=== PATIENT | male | born 1945 | race Caucasian/White ===

== ENCOUNTER → 2017-04-28 | Outpatient (CLI) | payer MEDICARE, OTHER ==
--- NOTE | 2017-04-29 11:02 | US ---
EXAM DESCRIPTION: Carotid Duplex CLINICAL HISTORY: CAROTID BRUIT COMPARISON: None. TECHNIQUE: Transcutaneous scanning utilizing 2-dimensional and Doppler modes to evaluate the bilateral carotid systems and vertebral arteries. Percentage of diameter of stenosis or no stenosis recorded will be based upon NASCET criteria. FINDINGS: Peak systolic/end diastolic (CM-Sec) CCA Right 88/14 Left 86/17. ICA Right proximal 125/20, mid 124/11. Left proximal 117/22, mid 79/14. Vertebral Right 30/8 Left 32/6. ECA (PS Only) Right 92 left 65. ICA/CCA peak systolic ratio: Right 1.4 Left 0.4 ICA/CCA end diastolic ratio: Right 1.4 Left 1.3 Vertebral arteries: Antegrade flow. Comments: Calcified plaque in the right proximal ICA. Area stenosis 50%. Diameter stenosis 55%. Calcified plaque also in the right CCA bulb. Area stenosis 30% and diameter stenosis 32%. Spectral broadening in the proximal right ICA. Calcified plaque in the left CCA bulb and proximal left ICA. Area stenosis 58% and diameter stenosis 55%. Area stenosis 30% in the proximal left ICA and 43% diameter stenosis. IMPRESSION: 1. Doppler evaluation of the bilateral carotid systems and vertebral arteries shows no hemodynamically significant stenoses. However, some diameter stenoses are greater than 50%. 2. Moderate amount of calcified plaque seen in the carotid arteries bilaterally. Bilateral vertebral arteries showed antegrade-cephalad flow. Electronically signed by: Herve Hua MD 04/29/2017 11:01 AM CDT
== END ==
LOC: US 15:15
PROVIDERS: ATTEND Family Medicine
DX: I65.23 Occlusion and stenosis of bilateral carotid arteries (principal)

== ENCOUNTER → 2017-05-05 | Outpatient (CLI) | payer MEDICARE, OTHER | END | disposition home or self-care (01) | LOC: GMAJ 12:20 | PROVIDERS: ATTEND Family Medicine | DX: Z12.5 Encounter for screening for malignant neoplasm of prostate (principal) ==

== ENCOUNTER → 2018-01-02 | Outpatient (CLI) | payer MEDICARE, OTHER | LOC: GMAJ 10:19 | PROVIDERS: ATTEND Family Medicine | DX: I10 Essential (primary) hypertension (principal) ==

== ENCOUNTER 2018-02-24 14:18 | Emergency (ER) | payer MEDICARE, OTHER ==
[2018-02-24 14:43] VITALS: TEMP 98.5
--- NOTE | 2018-02-24 15:09 | CT ---
EXAM DESCRIPTION: Head CLINICAL HISTORY: numbness to the left side COMPARISON: None available TECHNIQUE: Contiguous axial images through the head were obtained without intravenous contrast administration. Sagittal and coronal reconstructions were reviewed. FINDINGS: Mild periventricular white matter ischemia and mild diffuse cortical volume loss is noted. No evidence of acute major vascular territorial infarct or intraparenchymal hemorrhage. No intra-axial or extra-axial fluid collections are identified. The ventricles and cisterns appear normal in caliber. The sella and suprasellar regions appear normal. The structures of the posterior fossa are intact. The globes are intact bilaterally. The visualized paranasal sinuses and mastoid air cells are well-aerated. Review of the bones demonstrates no gross instability. IMPRESSION: Mild periventricular white matter ischemia and mild diffuse cortical volume loss is noted. No CT evidence of acute intracranial process. This exam was performed according to our departmental dose-optimization program, which includes automated exposure control, adjustment of the mA and/or kV according to patient size and/or use of iterative reconstruction technique. Electronically signed by: Pamela Arnett MD 02/24/2018 3:08 PM CDT
--- NOTE | 2018-02-24 15:28 | ED.PDOC ---
History of Present Illness - General Chief Complaint: General Stated Complaint: numbness to left side,left arm and leg Time Seen by Provider: 02/24/18 14:34 Source: patient Exam Limitations: no limitations - History of Present Illness Initial Comments: Abdirahman Veliz 73 y/o male stated that he was working out on a treadmill this am at about 9 am then after wards felt numbness starting from his neck ,left arm left chest down his back and had pain at back of legs which he stated that it had been constant denies weakness,chest pains dysarthria difficulty swallowing - able to eat lunch .Called up his primary Md and was advised to come to ER.Had ETT done by 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 Timing/Duration: 4-6 hours Severity: moderate Improving Factors: nothing Worsening Factors: nothing Associated Symptoms: other - see hpi Allergies/Adverse Reactions: Allergies NO KNOWN ALLERGY Allergy (Verified 08/31/13 11:53) Home Medications: Ambulatory Orders cloNAZepam [Klonopin] 0.5 mg PO DAILY 08/30/13 Atorvastatin Calcium [Lipitor] 10 mg PO BEDTIME 02/24/18 Chlorthalidone 25 mg PO DAILY 02/24/18 Metoprolol Tartrate 25 mg PO DAILY 02/24/18 Valsartan 40 mg PO DAILY 02/24/18 Review of Systems - Review of Systems Constitutional: States: no symptoms reported EENTM: States: no symptoms reported Respiratory: States: no symptoms reported Cardiology: States: no symptoms reported Gastrointestinal/Abdominal: States: no symptoms reported Musculoskeletal: States: no symptoms reported Skin: States: no symptoms reported Neurological: States: see HPI, numbness Endocrine: States: no symptoms reported Hematologic/Lymphatic: States: no symptoms reported Past Medical History (General) - Patient Medical History Hx Stroke: No Hx Asthma: No Hx of COPD: No Hx Cardiac Disorders: Yes Hx Congestive Heart Failure: No Hx Pacemaker: No Hx Hypertension: Yes Hx Diabetes: No Hx MRSA: No Surgical History: coronary bypass surgery, other - lower back,shoulder - Vaccination History Hx Influenza Vaccination: Yes Hx Pneumococcal Vaccination: Yes - Social History Hx Tobacco Use: No Family Medical History - Family History Father Family History: Unknown Living Status: Hx Cardiac Disease: Yes - dad/brother Hx Family Cancer: Yes - pancreas-mom Physical Exam - Physical Exam General Appearance: Alert, Comfortable, No apparent distress Eye Exam: bilateral normal Ears, Nose, Throat: hearing grossly normal, normal ENT inspection, normal pharynx Neck: non-tender, full range of motion, supple, normal inspection Respiratory: chest non-tender, lungs clear, normal breath sounds, no respiratory distress Cardiovascular/Chest: normal peripheral pulses, regular rate, rhythm, no murmur Peripheral Pulses: radial,right: 2+, radial,left: 2+ Gastrointestinal/Abdominal: normal bowel sounds, non tender, soft, no organomegaly Back Exam: normal inspection, no CVA tenderness, no vertebral tenderness Extremity: normal range of motion, non-tender, normal inspection, no pedal edema , no calf tenderness Neurologic: can dragger II-XII nml as tested, no motor/sensory deficits, alert, oriented x 3, other - Romberg negative ,negative pronator drift Skin Exam: normal color, warm/dry Lymphatic: no adenopathy Progress - Progress Progress: 02/24/18 16:48 Vital Signs - 8 hr 02/24/18 02/24/18 14:39 15:39 Temperature 98.5 F Pulse Rate [ 74 70 Left Brachial] Respiratory 20 18 Rate Blood Pressure 139/79 144/78 [Left Arm] O2 Sat by Pulse 96 95 Oximetry 02/24/18 16:55 Recommend hospital obs wants to go home ;Discuss all test result with patien - Results/Orders Results/Orders: Laboratory Tests 02/24/18 02/24/18 15:40 15:40 WBC 7.3 RBC 5.43 Hgb 16.2 Hct 48.9 MCV 90.0 MCH 29.8 MCHC 33.1 RDW 14.7 H Plt Count 148 MPV 10.4 Absolute Neuts (auto) 3.80 Absolute Lymphs (auto) 2.20 Absolute Monos (auto) 1.00 H Absolute Eos (auto) 0.20 Absolute Basos (auto) 0.10 Neutrophils % 52.0 Lymphocytes % 30.3 Monocytes % 14.1 H Eosinophils % 2.4 Basophils % 1.2 PT 10.4 INR 1.04 PTT (SP) 26.7 Sodium 145 Potassium 3.7 Chloride 101 Carbon Dioxide 36 H Anion Gap 11.7 L BUN 17 Creatinine 1.17 BUN/Creatinine Ratio 14.5 Random Glucose 76 Serum Osmolality 289.0 Calcium 9.9 Magnesium 2.1 Total Bilirubin 0.5 Direct Bilirubin < 0.1 Indirect Bilirubin 0.4 AST 36 ALT 32 Alkaline Phosphatase 84 Creatine Kinase 181 H CK-MB (CK-2) 4.8 H* CK-MB (CK-2) % 2.65 Troponin I < 0.02 C-Reactive Protein 1.1 H Serum Total Protein 7.4 Albumin 4.2 Urine Color Yellow Urine Appearance Clear Urine pH 6.5 Ur Specific [place] 1.025 Urine Protein Negative Urine Glucose (UA) Negative Urine Ketones Trace Urine Blood Negative Urine Nitrite Negative Urine Bilirubin Negative Urine Urobilinogen 0.2 Ur Leukocyte Esterase Negative Urine RBC 0 Urine WBC 0 Ur Epithelial Cells 0 Urine Bacteria 0 - EKG/XRAY/CT CT Ordered: Yes - no acute infarct or hemorrhage Departure - Departure Clinical Impression: Numbness and tingling in left arm Time of Disposition: 16:56 Disposition: Discharge to Home or Self Care Condition: Fair Departure Forms: ED Discharge - Pt. Copy, Patient Portal Self Enrollment Instructions: Transient Ischemic Attack (DC) Referrals: Ciro Elder MD [Primary Care Provider] - 1-2 Weeks Home Medications: Ambulatory Orders cloNAZepam [Klonopin] 0.5 mg PO DAILY 08/30/13 Atorvastatin Calcium [Lipitor] 10 mg PO BEDTIME 02/24/18 Chlorthalidone 25 mg PO DAILY 02/24/18 Metoprolol Tartrate 25 mg PO DAILY 02/24/18 Valsartan 40 mg PO DAILY 02/24/18 Additional Instructions: Continue with all home medication including Aspirin 325 mg daily;Return to Emergency room as needed;Follow up with primary MD 25 February 2018 for recheck
[2018-02-24 17:05] VITALS: BP 120/69; O2SAT 97
== END 2018-02-24 17:05 | disposition home or self-care (01) ==
LOC: ER 14:18
DX: R20.0 Anesthesia of skin (principal); I10 Essential (primary) hypertension; Z95.1 Presence of aortocoronary bypass graft; Z79.899 Other long term (current) drug therapy

== ENCOUNTER → 2018-07-02 | Outpatient (CLI) | payer MEDICARE, OTHER | LOC: GMAJ 11:14 | PROVIDERS: ATTEND Family Medicine | DX: Z12.5 Encounter for screening for malignant neoplasm of prostate (principal) ==

== ENCOUNTER → 2018-11-26 | Outpatient (CLI) | payer MEDICARE, OTHER ==
--- NOTE | 2018-11-26 17:37 | US ---
EXAM DESCRIPTION: Carotid Duplex: ULTRASOUND. CLINICAL HISTORY: 73 years Male OCCLUSION AND STENOSIS COMPARISON: Ultrasound carotid duplex evaluation 04/28/2017. TECHNIQUE: Transcutaneous scanning utilizing roberts-scale and Doppler modes to evaluate the bilateral carotid systems and vertebral arteries. Percentage of diameter of stenosis or no stenosis recorded will be based upon NASCET criteria. FINDINGS: Peak systolic/end diastolic (CM-Sec) CCA Right 73/8 Left 78/13. ICA Right proximal 102/23, distal 99/16. Left proximal 73/16, mid 83/11. Vertebral Right 29/9 Left 42/10. ECA (PS Only) Right 80 left 47. ICA/CCA peak systolic ratio: Right 1.4 Left 1.1 ICA/CCA end diastolic ratio: Right 2.9 Left 0.9 Vertebral arteries: antegrade flow. Comments: Calcified plaque in the right proximal ICA and distal common carotid bulb. Diameter stenosis approximately 68%. Spectral broadening in the ICA and color turbulent flow at the stenosis. Calcified plaque at the left common carotid bulb. Area stenosis is 56% and diameter stenosis 51%. IMPRESSION: 1. The end-diastolic ICA to CCA ratio of 2.9 in the right carotid and the grayscale measurements of 68% diameter stenosis suggest stenosis in the 60-69% diameter range. This is nonhemodynamically significant. Other Doppler parameters suggest less degree of stenosis. Consider CTA or noncontrast MRA of the carotid and vertebral vessels. 2. Moderate amount of plaque seen in the carotid arteries bilaterally. Bilateral vertebral arteries showed antegrade-cephalad flow. Electronically signed by: Herve Hua MD 11/26/2018 5:35 PM CDT
== END ==
LOC: US 10:30
PROVIDERS: ATTEND Family Medicine
DX: I65.23 Occlusion and stenosis of bilateral carotid arteries (principal)

== ENCOUNTER → 2018-12-07 | Outpatient (CLI) | payer MEDICARE, OTHER ==
--- NOTE | 2018-12-07 09:37 | CT ---
EXAM DESCRIPTION: CTA Neck: Computed Tomography. CLINICAL HISTORY: CAROTID ARTERY STENOSIS OF UNSPECIFIED CAROTID ARTERY COMPARISON: Carotid Doppler ultrasound 11/26/2018. TECHNIQUE: Spiral, axial 2.5 x 2.5 mm scans through the neck soft tissues after bolus infusion of IV contrast. Protochips SmartPrep technique. Coronal and sagittal 2.0 mm reconstructions. 3D volume rendering images 0.6 mm rotation around the CC axis . Percentage of stenosis recorded will be based upon NASCET criteria. Total Exam DLP: 476.9 mGy-cm. This exam was performed according to our departmental CT dose-optimization program which includes automated exposure control, adjustment of the mA and/or kV according to patient size and/or use of iterative reconstruction technique; to reduce radiation dose to as low as reasonably achievable (ALARA). Note: Minimal lack of sharpness of the vessels with motion artifact. FINDINGS: Right common carotid artery well-visualized with intimal wall thickening. Atherosclerotic plaque begins in the distal vessel extending into the common carotid bulb and also the proximal right ICA, approximately 2 cm total length. Moderate amount of soft plaque is visualized on the posterior lateral wall, and calcification between the soft plaque and the lumen, as well as calcification around the majority of the rim of the entire vessel. The diameter stenosis of the proximal vessel is approximately 85% which is a critical degree of stenosis. No significant narrowing of the ECA. Minimal calcification in the carotid siphon. Right posterior communicating artery originates from the intracranial segment with Bifurcation to form the MITRA and MCA and no significant stenosis or aneurysm. No vasculitis or mass effect. Atherosclerotic calcification at the origin of the left CCA with no significant narrowing. Mostly calcified plaque and some soft plaque left common carotid bulb and proximal ICA with no significant stenosis or aneurysm. Calcification in the transverse canal and in the carotid siphon. Bifurcation to form the MITRA and MCA is unremarkable. No left posterior communicating artery. No vasculitis or mass effect. Origins of the bilateral vertebral arteries unremarkable. No significant calcification or narrowing in the neck. Unremarkable major vessels originating from the distal vertebral arteries and the basilar artery. Unremarkable bifurcation of the basilar artery to form the posterior cerebral arteries. Skull base is negative. Spondylosis in the cervical spine from C3-4 to C7-T1. Possibly significant neural foraminal narrowing at some levels. Upper cervical kyphosis. Atherosclerosis of the aortic arch. Soft tissues of the neck unremarkable. Sternoclavicular arthrosis bilaterally. Sternotomy wires. Included lung is unremarkable. IMPRESSION: 1. Approximately 85% diameter stenosis of the proximal right ICA by hard and soft plaque. Neurovascular surgical consult recommended. 2. Left CCA and ICA, and bilateral vertebral basilar system unremarkable. Electronically signed by: Herve Hua MD 12/07/2018 9:35 AM CDT
== END ==
LOC: CT 08:10
PROVIDERS: ATTEND Family Medicine
DX: I65.21 Occlusion and stenosis of right carotid artery (principal)

== ENCOUNTER 2019-01-01 18:24 | Emergency (ER) | payer MEDICARE, OTHER ==
--- NOTE | 2019-01-01 18:43 | ED.PDOC ---
History of Present Illness - General Chief Complaint: Post Op Problems Time Seen by Provider: 01/01/19 18:40 Source: patient Exam Limitations: no limitations - History of Present Illness Initial Comments: patient comes in today for possible postop complication. Patient had right carotid stent placement done yesterday. They used a right femoral approach. Patient states he felt did fine but today when he was in the bathroom felt himself strain and then felt a little twinge or a pop in the right groin area. When he went to examine it felt like there was a small bump there. Possible part of his postop instructions that any swelling or lumps should be seen by the employee communications coordinator or the emergency room immediately. He denies any pain or discomfort. No chest pain or shortness of breath. No fever or chills. Timing/Duration: momentarily Severity: mild Improving Factors: nothing Worsening Factors: nothing Associated Symptoms: denies symptoms Allergies/Adverse Reactions: Allergies NO KNOWN ALLERGY Allergy (Verified 01/01/19 18:57) Home Medications: Ambulatory Orders cloNAZepam [Klonopin] 0.5 mg PO DAILY 08/30/13 Atorvastatin Calcium [Lipitor] 10 mg PO BEDTIME 02/24/18 Chlorthalidone 25 mg PO DAILY 02/24/18 Metoprolol Tartrate 25 mg PO DAILY 02/24/18 Valsartan 40 mg PO DAILY 02/24/18 Review of Systems - Review of Systems Constitutional: States: no symptoms reported. Denies: chills, fever EENTM: States: no symptoms reported. Denies: eye pain, ear discharge, nose congestion, throat pain Respiratory: States: no symptoms reported. Denies: cough, short of breath Cardiology: States: see HPI, syncope. Denies: chest pain, edema, palpitations Gastrointestinal/Abdominal: States: no symptoms reported. Denies: abdominal pain, diarrhea, nausea, vomiting Genitourinary: States: no symptoms reported Musculoskeletal: States: no symptoms reported Skin: States: no symptoms reported Neurological: States: see HPI Past Medical History (General) - Patient Medical History Hx Stroke: No Hx Asthma: No Hx of COPD: No Hx Cardiac Disorders: Yes Hx Congestive Heart Failure: No Hx Pacemaker: No Hx Hypertension: Yes Hx Diabetes: No Hx MRSA: No - Vaccination History Hx Influenza Vaccination: Yes Hx Pneumococcal Vaccination: Yes - Social History Hx Tobacco Use: No Family Medical History - Family History Father Family History: Unknown Living Status: Hx Cardiac Disease: Yes - dad/brother Hx Family Cancer: Yes - pancreas-mom Physical Exam - Physical Exam General Appearance: Alert, Comfortable, No apparent distress Eye Exam: bilateral normal Ears, Nose, Throat: hearing grossly normal Neck: non-tender Respiratory: chest non-tender, lungs clear, normal breath sounds Cardiovascular/Chest: normal peripheral pulses, regular rate, rhythm Gastrointestinal/Abdominal: normal bowel sounds, non tender, soft Extremity: other - 1.5 cm area of induration from site of insertion of cath, no erythema, no hematoma, no fluctlance or discharge Progress - Progress Progress: 01/01/19 19:53 no change in groin,no hematoma during monitoring - Results/Orders Results/Orders: Laboratory Results WBC 7.8 K/mm3 (4.8-10.8) 01/01/19 18:54 RBC 4.32 M/mm3 (4.70-6.10) L 01/01/19 18:54 Hgb 13.0 gm/dL (14.0-18.0) L 01/01/19 18:54 Hct 38.8 % (42.0-52.0) L 01/01/19 18:54 MCV 89.9 fl (80.0-94.0) 01/01/19 18:54 MCH 30.0 pg (27.0-31.0) 01/01/19 18:54 MCHC 33.4 g/dL (33.0-37.0) 01/01/19 18:54 RDW 14.2 % (11.5-14.5) 01/01/19 18:54 Plt Count 125 K/mm3 (130-400) L 01/01/19 18:54 MPV 9.4 fl (7.40-10.4) 01/01/19 18:54 Absolute Neuts (auto) 4.30 K/uL (1.8-6.8) 01/01/19 18:54 Absolute Lymphs (auto) 2.20 K/uL (1.0-3.4) 01/01/19 18:54 Absolute Monos (auto) 1.10 K/uL (0.2-0.8) H 01/01/19 18:54 Absolute Eos (auto) 0.10 K/uL (0.0-0.4) 01/01/19 18:54 Absolute Basos (auto) 0.10 K/uL (0.0-0.1) 01/01/19 18:54 Neutrophils % 54.4 % (42.0-78.0) 01/01/19 18:54 Lymphocytes % 28.4 % (20.0-50.0) 01/01/19 18:54 Monocytes % 14.6 % (2.0-9.0) H 01/01/19 18:54 Eosinophils % 1.9 % (1.0-5.0) 01/01/19 18:54 Basophils % 0.7 % (0.0-2.0) 01/01/19 18:54 Departure - Departure Clinical Impression: Postoperative pain Disposition: Discharge to Home or Self Care Condition: Good Departure Forms: ED Discharge - Pt. Copy, Patient Portal Self Enrollment Referrals: Ciro Elder MD [Primary Care Provider] - 1-2 Weeks Home Medications: Ambulatory Orders cloNAZepam [Klonopin] 0.5 mg PO DAILY 08/30/13 Atorvastatin Calcium [Lipitor] 10 mg PO BEDTIME 02/24/18 Chlorthalidone 25 mg PO DAILY 02/24/18 Metoprolol Tartrate 25 mg PO DAILY 02/24/18 Valsartan 40 mg PO DAILY 02/24/18 Additional Instructions: follow up with doctor as planned. Return to ER for increased swelling, any bleeding, or worsening of pain
[2019-01-01 18:57] VITALS: TEMP 96.4
[2019-01-01 20:16] VITALS: BP 90/51; O2SAT 97
== END 2019-01-01 20:17 | disposition home or self-care (01) ==
LOC: ER 18:24
DX: G89.18 Other acute postprocedural pain (principal); I51.9 Heart disease, unspecified; I10 Essential (primary) hypertension; Z79.899 Other long term (current) drug therapy; Z95.5 Presence of coronary angioplasty implant and graft

== ENCOUNTER → 2020-07-12 | Outpatient (CLI) | payer MEDICARE, OTHER | LOC: GMAJ 11:20 | PROVIDERS: ATTEND Family Medicine | DX: I10 Essential (primary) hypertension (principal); Z12.5 Encounter for screening for malignant neoplasm of prostate; Z13.29 Encounter for screening for other suspected endocrine disorder; E78.2 Mixed hyperlipidemia | CPT/HCPCS: 84403; 84439; 84443; G0103 ==